=== PATIENT | female | born 1985 | race Caucasian/White ===

== ENCOUNTER 2017-08-01 01:02 | Emergency (ER) | payer MEDICAID ==
[~2017-08-01] VITALS: Ht 160 cm; Wt 63.5 kg
[2017-08-01] MEDS ORDERED: LORATADINE10 M2 PO (01:17)
== END 2017-08-01 01:50 | disposition home or self-care (01) ==
LOC: ED 01:02
DX: J45.901 Unspecified asthma with (acute) exacerbation (principal); I10 Essential (primary) hypertension; F17.200 Nicotine dependence, unspecified, uncomplicated; Z79.899 Other long term (current) drug therapy
CPT/HCPCS: 99282

== ENCOUNTER 2017-09-25 22:36 | Emergency (ER) | payer MEDICAID ==
[~2017-09-25] VITALS: Ht 160 cm; Wt 63.5 kg
[~2017-09-25 22:36] MED LIST: LORATADINE10 M2 PO
[2017-09-25] MEDS ORDERED: VENTOLIN HFA18 GM INH (22:47)
== END 2017-09-25 23:32 | disposition home or self-care (01) ==
LOC: ED 22:36
DX: J45.901 Unspecified asthma with (acute) exacerbation (principal); I10 Essential (primary) hypertension; F17.200 Nicotine dependence, unspecified, uncomplicated
CPT/HCPCS: 99284

== ENCOUNTER 2017-11-25 19:29 | Emergency (ER) | payer OTHER ==
[~2017-11-25] VITALS: Ht 162.6 cm; Wt 72.6 kg
[~2017-11-25 19:29] MED LIST changes: +VENTOLIN HFA18 GM INH
--- NOTE | 2017-11-26 18:22 | EKG ---
[facility] [address] [facility] [place], [place] [address] Signed Normal sinus rhythm with sinus arrhythmia Normal ECG No previous ECGs available Confirmed by CORY TENORIO DO ([id number]) on 11/26/2017 6:22:38 PM Electronically Signed By: CORY TENORIO DO 11/26/17 182 PATIENT NAME: SHIRIN ROBLES Electrocardiogram DATE OF : 83 PHYSICIAN: CORY TENORIO DO REPORT #: [id number] REPORT IS CONFIDENTIAL AND NOT TO BE RELEASED WITHOUT AUTHORIZATION
== END 2017-11-25 23:02 | disposition home or self-care (01) ==
LOC: ED 19:29
DX: R42 Dizziness and giddiness (principal); E86.0 Dehydration; I10 Essential (primary) hypertension; F17.200 Nicotine dependence, unspecified, uncomplicated
CPT/HCPCS: 80053; 81001; 85025; 93005; 93010; 99284; J7030

== ENCOUNTER 2017-12-30 14:18 | Emergency (ER) | payer OTHER ==
[~2017-12-30] VITALS: Ht 162.6 cm; Wt 72.6 kg
== END 2017-12-30 14:47 | disposition home or self-care (01) ==
LOC: ED 14:18
DX: R22.0 Localized swelling, mass and lump, head (principal)

== ENCOUNTER 2018-09-13 22:20 | Emergency (ER) | payer OTHER ==
[~2018-09-13] VITALS: Ht 162.6 cm; Wt 72.6 kg
[2018-09-13] MEDS ORDERED: AUGMENTIN 875-1 EACH PO (22:51)
== END 2018-09-13 23:10 | disposition home or self-care (01) ==
LOC: ED 22:20
DX: S61.051A Open bite of right thumb without damage to nail, initial encounter (principal); I10 Essential (primary) hypertension; J45.909 Unspecified asthma, uncomplicated; F17.200 Nicotine dependence, unspecified, uncomplicated; W54.0XXA Bitten by dog, initial encounter
CPT/HCPCS: 90471; 90715; 99283